=== PATIENT | female | born 1945 | race Caucasian/White ===

== ENCOUNTER 2019-04-19 15:51 | Emergency (ER) | payer OTHER ==
[~2019-04-19] VITALS: Ht 162.6 cm; Wt 95.0 kg
[2019-04-19] MEDS ORDERED: IBUPROFEN 800MG TABLET PO ONE (17:45)
[2019-04-19] MEDS ORDERED: HYDROCODONE/ACETAMINOPHEN 5/325MG TABLET PO ONE (17:45)
[2019-04-19 17:46] LABS: CHLORIDE 105 mEq/L (98-107)
[2019-04-19 17:47] LABS: PARTIAL THROMBOPLASTIN TIME 27.9 sec (23.4-31.0); PROTHROMBIN TIME 10.7 sec (9.6-11.0)
[2019-04-19 18:01] LABS: BASOPHILS % 0.6 % (0.0-2.0); EOSINOPHILS % 2.5 % (0.0-5.0); HEMATOCRIT. 35.1 % (36.0-48.0); HEMOGLOBIN. 12.7 g/dL (12.0-16.0); LYMPHOCYTES % 16.6 % (20.0-50.0); MEAN CORPUSCULAR HEMOGLOBIN 31.8 pg (28.0-32.0); MEAN CORPUSCULAR VOLUME 88.1 fL (81.0-99.0); MEAN PLATELET VOLUME 7.2 fl (7.4-10.4); MONOCYTES % 9.2 % (2.0-8.0); NEUTROPHILS % 71.1 % (40.0-76.0); PLATELET 338 x1000/uL (130-400); RED BLOOD CELL COUNT 3.99 mill/uL (4.2-5.4); RED CELL DISTRIBUTION WIDTH 14.3 % (11.6-14.6)
[2019-04-19 19:08] VITALS: BP 131/80
== END 2019-04-19 20:09 | disposition home or self-care (01) ==
LOC: ER 15:51
DX: I86.8 Varicose veins of other specified sites (principal); I10 Essential (primary) hypertension
CPT/HCPCS: 36415; 99283